=== PATIENT | male | born 1970 | race Native Hawaiian/Other Pacific Islander ===

== ENCOUNTER 2022-03-03 08:32 | Outpatient (CLI) | payer BC | END 2022-03-03 19:52 | disposition home or self-care (01) | LOC: US 08:32 | PROVIDERS: ATTEND Nurse Practitioner Family | DX: R10.11 Right upper quadrant pain (principal); R14.0 Abdominal distension (gaseous); K59.1 Functional diarrhea ==

== ENCOUNTER 2022-03-04 07:35 | Outpatient (CLI) | payer BC | END 2022-03-04 19:20 | disposition home or self-care (01) | LOC: NM 07:35 | PROVIDERS: ATTEND Nurse Practitioner Family | DX: R10.11 Right upper quadrant pain (principal); R14.0 Abdominal distension (gaseous); K59.1 Functional diarrhea | CPT/HCPCS: A9537 ==